=== PATIENT | male | born 1945 | race Caucasian/White ===

== ENCOUNTER 2017-11-15 13:33 | Inpatient (IN) | payer OTHER ==
[~2017-11-15] VITALS: Ht 172.7 cm; Wt 83.1 kg
[~2017-11-15 13:33] MED LIST: ADV250 IH; AEC81 PO; ALBU18HF7 IH; DIGO125T87 PO; DRON400T2 PO; FURO40TA5 PO; LOSA50TA37 PO; METO-391 PO; POTA10CA44 PO; RIVA20TA PO; TIOT18CA3 IH
[2017-11-15 13:58] LABS: BASOPHILS % (AUTO) 0.5 % (0.0-5.0); EOSINOPHILS % (AUTO) 4.8 % (0.0-8.0); HEMATOCRIT 39.7 % (42-54); LYMPHOCYTES % (AUTO) 12.1 % (21.0-51.0); MEAN CORPUSCULAR HEMOGLOBIN 32.4 pg (27.0-33.0); MEAN CORPUSCULAR HGB CONC 35.7 g/dL (32.0-36.0); MEAN CORPUSCULAR VOLUME 90.8 fL (79-99); MONOCYTES % (AUTO) 16.7 % (3.0-13.0); NEUTROPHILS % (AUTO) 65.9 % (40.0-77.0); PLATELET COUNT (AUTO) 223 K/uL (130-400); RED BLOOD CELL COUNT(AUTO) 4.37 MIL/uL (4.50-6.20); RED CELL DISTRIBUTION WIDTH 13.6 % (11.0-15.5)
[2017-11-15 14:06] LABS: CREATININE 1.3 mg/dL (0.5-1.5); POTASSIUM 4.3 mmol/L (3.5-5.1)
[2017-11-15] MEDS ORDERED: IPRATROPIUM/ALBUTEROL SULFATE 3 ML SOLUTION IH ONE ×2 (14:12→16:47)
[2017-11-15 14:13] LABS: ALBUMIN 3.6 g/dL (3.5-5.0); BILIRUBIN,TOTAL 0.6 mg/dL (0.2-1.0)
[2017-11-15 14:22] LABS: INR 1.27 (0.85-1.15); PARTIAL THROMBOPLASTIN TIME 42.1 SEC (26.3-35.5); PROTHROMBIN TIME 13.3 SEC (9.6-11.6)
[2017-11-15 14:32] LABS: B-TYPE NATRIURETIC PEPTIDE 176 pg/mL (0-100)
[2017-11-15] MEDS ORDERED: METHYLPREDNISOLONE SOD SUCC 125MG/2ML VIAL ONE (15:31)
[2017-11-15] MEDS ORDERED: LEVOFLOXACIN 750 MG/D5W 150 ML 150 ML ONE (17:22)
[2017-11-15] MEDS ORDERED: ONDANSETRON HCL 4 MG/2 ML VIAL IVP PRN (20:00)
[2017-11-15] MEDS ORDERED: ACETAMINOPHEN 325 MG TAB PO PRN (20:00)
[2017-11-16] MEDS: IPRATROPIUM/ALBUTEROL SULFATE 3 ML SOLUTION IH SCH ×6 (00:28→22:00)
[2017-11-16 05:33] LABS: BASOPHILS % (AUTO) 0.8 % (0.0-5.0); HEMATOCRIT 41.3 % (42-54); LYMPHOCYTES % (AUTO) 6.6 % (21.0-51.0); MEAN CORPUSCULAR HEMOGLOBIN 31.1 pg (27.0-33.0); MEAN CORPUSCULAR HGB CONC 34.2 g/dL (32.0-36.0); MEAN CORPUSCULAR VOLUME 90.7 fL (79-99); MONOCYTES % (AUTO) 7.8 % (3.0-13.0); NEUTROPHILS % (AUTO) 84.8 % (40.0-77.0); PLATELET COUNT (AUTO) 213 K/uL (130-400); RED BLOOD CELL COUNT(AUTO) 4.56 MIL/uL (4.50-6.20); RED CELL DISTRIBUTION WIDTH 13.8 % (11.0-15.5); WHITE BLOOD COUNT (AUTO) 4.8 K/uL (4.8-10.8)
[2017-11-16 05:40] LABS: INR 1.1 (0.85-1.15); PARTIAL THROMBOPLASTIN TIME 35.8 SEC (26.3-35.5); PROTHROMBIN TIME 11.5 SEC (9.6-11.6)
[2017-11-16 05:54] LABS: ALBUMIN 3.5 g/dL (3.5-5.0); BILIRUBIN,TOTAL 0.6 mg/dL (0.2-1.0); CREATININE 1.4 mg/dL (0.5-1.5); POTASSIUM 4.3 mmol/L (3.5-5.1); TOTAL PROTEIN, SERUM 7.1 g/dL (6.0-8.3)
[2017-11-16] MEDS ORDERED: IPRATROPIUM/ALBUTEROL SULFATE 3 ML SOLUTION IH ONE (06:35)
[2017-11-16] MEDS ORDERED: METHYLPREDNISOLONE SOD SUCC 125MG/2ML VIAL ONE (08:29)
[2017-11-16 08:57] VITALS: BP 130/92
[2017-11-16] MEDS ORDERED: METHYLPREDNISOLONE SOD SUCC 125MG/2ML VIAL IVP SCH (09:00)
[2017-11-16] MEDS: RIVAROXABAN 20 MG TABLET PO SCH (09:02)
[2017-11-16 11:33] VITALS: BP 127/83
[2017-11-16 16:11] VITALS: BP 157/98
[2017-11-16] MEDS ORDERED: METOPROLOL TARTRATE 25 MG TAB ONE (17:07)
[2017-11-16] MEDS: METOPROLOL TARTRATE 25 MG TAB PO SCH (17:08)
[2017-11-16] MEDS: DRONEDARONE HYDROCHLORIDE 400 MG TABLET PO SCH (19:14)
[2017-11-16 19:21] LABS: CREATINE KINASE MB 12.7 ng/mL (0.5-3.6); MYOGLOBIN 407 ng/mL (10-92); TROPONIN I 0.15 ng/mL (0.00-0.06)
[2017-11-16 19:23] LABS: CREATINE KINASE, TOTAL 441 U/L (21-232); DIGOXIN < 0.20 ng/mL (0.50-2.00)
[2017-11-16 20:00] VITALS: BP 145/89
[2017-11-16] MEDS ORDERED: DRONEDARONE HYDROCHLORIDE 400 MG TABLET PO SCH (21:00)
[2017-11-16 21:43] LABS: ABG BASE EXCESS 0.4 mmol/L (-2.0-3.0); ABG HCO3 26.2 mmol/L (21.0-28.0); ABG OXYGEN SATURATION 98.9 % (95.0-99.0); ABG PCO2 46 mmHg (35-48)
[2017-11-16 23:29] VITALS: BP 145/91
[2017-11-17] MEDS: LEVOFLOXACIN 750 MG/D5W 150 ML 150 ML IV SCH
[2017-11-17] MEDS ORDERED: LEVOFLOXACIN 500 MG/D5W 100 ML 200 ML ONE (00:06)
[2017-11-17] MEDS: METHYLPREDNISOLONE SOD SUCC 40MG/ML 1ML IVP SCH ×5 (01:03→23:32)
[2017-11-17] MEDS ORDERED: LORAZEPAM 2 MG/ML 1 ML VIAL ONE (02:39)
[2017-11-17] MEDS ORDERED: LORAZEPAM 2 MG/ML 1 ML VIAL IVP ONE (02:45)
[2017-11-17] MEDS: IPRATROPIUM/ALBUTEROL SULFATE 3 ML SOLUTION IH SCH ×6 (02:53→21:54)
[2017-11-17 03:59] LABS: HEMATOCRIT 44.5 % (42-54); MEAN CORPUSCULAR HEMOGLOBIN 31.7 pg (27.0-33.0); MEAN CORPUSCULAR HGB CONC 34.7 g/dL (32.0-36.0); MEAN CORPUSCULAR VOLUME 91.2 fL (79-99); PLATELET COUNT (AUTO) 237 K/uL (130-400); RED BLOOD CELL COUNT(AUTO) 4.88 MIL/uL (4.50-6.20); RED CELL DISTRIBUTION WIDTH 14.1 % (11.0-15.5); WHITE BLOOD COUNT (AUTO) 9.8 K/uL (4.8-10.8)
[2017-11-17 04:00] VITALS: BP 150/92
[2017-11-17 04:08] LABS: INR 1.04 (0.85-1.15); PARTIAL THROMBOPLASTIN TIME 33.1 SEC (26.3-35.5); PROTHROMBIN TIME 10.9 SEC (9.6-11.6)
[2017-11-17 04:21] LABS: ALBUMIN 3.8 g/dL (3.5-5.0); BILIRUBIN,TOTAL 0.6 mg/dL (0.2-1.0); CREATININE 1.2 mg/dL (0.5-1.5); MAGNESIUM 2.2 mg/dL (1.80-2.40); POTASSIUM 4.2 mmol/L (3.5-5.1); TOTAL PROTEIN, SERUM 7.7 g/dL (6.0-8.3); TROPONIN I 0.22 ng/mL (0.00-0.06)
[2017-11-17 07:40] VITALS: BP 112/59
[2017-11-17] MEDS: LOSARTAN 50 MG TABLET PO SCH (08:00)
[2017-11-17] MEDS: ASPIRIN 81 MG EC TAB PO SCH (08:00)
[2017-11-17] MEDS: DRONEDARONE HYDROCHLORIDE 400 MG TABLET PO SCH ×2 (08:00→16:54)
[2017-11-17] MEDS: RIVAROXABAN 20 MG TABLET PO SCH (08:01)
[2017-11-17] MEDS: METOPROLOL TARTRATE 25 MG TAB PO SCH ×2 (08:01→20:04)
[2017-11-17] MEDS: FUROSEMIDE 40 MG TABLET PO SCH (08:01)
[2017-11-17 11:02] LABS: CREATINE KINASE MB 11.7 ng/mL (0.5-3.6); TROPONIN I 0.14 ng/mL (0.00-0.06)
[2017-11-17 11:28] VITALS: BP 116/74
[2017-11-17 16:26] VITALS: BP 122/69
[2017-11-17 20:00] VITALS: BP 125/69
[2017-11-18] VITALS: BP 127/73
[2017-11-18] MEDS: IPRATROPIUM/ALBUTEROL SULFATE 3 ML SOLUTION IH SCH ×6 (02:08→21:58)
[2017-11-18 04:00] VITALS: BP 129/75
[2017-11-18] MEDS: METHYLPREDNISOLONE SOD SUCC 40MG/ML 1ML IVP SCH ×2 (05:55→11:49)
[2017-11-18 07:30] VITALS: BP 123/72
[2017-11-18] MEDS: ASPIRIN 81 MG EC TAB PO SCH (08:39)
[2017-11-18] MEDS: FUROSEMIDE 40 MG TABLET PO SCH (08:39)
[2017-11-18] MEDS: DRONEDARONE HYDROCHLORIDE 400 MG TABLET PO SCH ×2 (08:40→16:53)
[2017-11-18] MEDS: METOPROLOL TARTRATE 25 MG TAB PO SCH ×2 (08:40→20:17)
[2017-11-18] MEDS: LOSARTAN 50 MG TABLET PO SCH (08:40)
[2017-11-18] MEDS: RIVAROXABAN 20 MG TABLET PO SCH (08:40)
[2017-11-18 11:00] VITALS: BP 129/70
[2017-11-18 16:00] VITALS: BP 126/71
[2017-11-18] MEDS: PREDNISONE 20 MG TABLET PO SCH (20:17)
[2017-11-18 20:24] VITALS: BP 131/71
[2017-11-18] MEDS: LEVOFLOXACIN 750 MG/D5W 150 ML 150 ML IV SCH (22:22)
[2017-11-19 00:06] VITALS: BP 107/54
[2017-11-19] MEDS: IPRATROPIUM/ALBUTEROL SULFATE 3 ML SOLUTION IH SCH ×2 (01:20→06:00)
[2017-11-19 04:39] VITALS: BP 116/69
[2017-11-19] MEDS: PREDNISONE 20 MG TABLET PO SCH (06:55)
[2017-11-19] MEDS: METOPROLOL TARTRATE 25 MG TAB PO SCH (07:53)
[2017-11-19] MEDS: DRONEDARONE HYDROCHLORIDE 400 MG TABLET PO SCH (07:53)
[2017-11-19] MEDS: ASPIRIN 81 MG EC TAB PO SCH (07:53)
[2017-11-19] MEDS: RIVAROXABAN 20 MG TABLET PO SCH (07:53)
[2017-11-19] MEDS: FUROSEMIDE 40 MG TABLET PO SCH (07:54)
[2017-11-19] MEDS: LOSARTAN 50 MG TABLET PO SCH (07:54)
== END 2017-11-19 08:30 | disposition home or self-care (01) | DRG 189 ==
LOC: EDH 13:33 → OBSVTOIN 18:28 → EDHIP 18:28 → 4BH 11-16 08:31
PROVIDERS: ADMIT Internal Medicine; ATTEND Internal Medicine
PROC: 5A09357 Assistance with Respiratory Ventilation, Less than 24 Consecutive Hours, Continuous Positive Airway Pressure (ICD-10-PCS; 2017-11-16)
PROC: 5A09357 Assistance with Respiratory Ventilation, Less than 24 Consecutive Hours, Continuous Positive Airway Pressure (ICD-10-PCS; principal; 2017-11-18)
DX: J96.91 Respiratory failure, unspecified with hypoxia (principal); I48.0 Paroxysmal atrial fibrillation; J44.1 Chronic obstructive pulmonary disease with (acute) exacerbation; I25.5 Ischemic cardiomyopathy; I25.10 Atherosclerotic heart disease of native coronary artery without angina pectoris; F17.210 Nicotine dependence, cigarettes, uncomplicated; I12.9 Hypertensive chronic kidney disease with stage 1 through stage 4 chronic kidney disease, or unspecified chronic kidney disease; I48.2 Chronic atrial fibrillation; N18.2 Chronic kidney disease, stage 2 (mild); Z82.49 Family history of ischemic heart disease and other diseases of the circulatory system; Z87.442 Personal history of urinary calculi; Z88.0 Allergy status to penicillin; Z88.1 Allergy status to other antibiotic agents; Z91.040 Latex allergy status; Z91.048 Other nonmedicinal substance allergy status; Z28.21 Immunization not carried out because of patient refusal
CPT/HCPCS: 36415; 36600; 71045; 80053; 80162; 82550; 82553; 82803; 83735; 83874; 83880; 84484; 85025; 85027; 85610; 85730; 87804; 93005; 94640; 94660; 94664; 94760; 99291; J1956; J2060; J2920; J2930

== ENCOUNTER → 2018-08-01 | Outpatient (CLI) | payer OTHER ==
[~2018-08-01] MED LIST changes: -DIGO125T87 PO; +LOSA50TA25 PO; -LOSA50TA37 PO
== END | disposition home or self-care (01) ==
LOC: SHCH 09:32
PROVIDERS: ATTEND Internal Medicine Cardiovascular Disease
DX: I11.9 Hypertensive heart disease without heart failure (principal); I34.0 Nonrheumatic mitral (valve) insufficiency; I48.0 Paroxysmal atrial fibrillation; Z72.89 Other problems related to lifestyle
CPT/HCPCS: 93306

== ENCOUNTER → 2018-11-17 | Outpatient (CLI) | payer OTHER ==
[~2018-11-17] MED LIST changes: -LOSA50TA25 PO; +LOSA50TA64 PO
== END | disposition home or self-care (01) ==
LOC: SHCH 07:47
PROVIDERS: ATTEND Internal Medicine Cardiovascular Disease
DX: I51.7 Cardiomegaly (principal); I48.91 Unspecified atrial fibrillation; J44.9 Chronic obstructive pulmonary disease, unspecified
CPT/HCPCS: 93306

== ENCOUNTER 2019-05-01 09:43 | Observation (INO) | payer OTHER ==
[~2019-05-01] VITALS: Ht 165.1 cm; Wt 74.8 kg
[2019-05-01] MEDS ORDERED: ONDANSETRON HCL 4 MG/2 ML VIAL ONE (10:01)
[2019-05-01] MEDS ORDERED: CEFTRIAXONE SODIUM 1 GM ONE (10:02)
[2019-05-01] MEDS ORDERED: MORPHINE SULFATE 2 MG/ML 1ML SYG ONE (10:02)
[2019-05-01] MEDS ORDERED: SODIUM CHLORIDE 0.9% 1000ML 1,000 ML IV ONE (10:03)
[2019-05-01 10:19] LABS: CREATININE 1.3 mg/dL (0.5-1.5); POTASSIUM 3.4 mmol/L (3.5-5.1)
[2019-05-01 10:24] LABS: ALBUMIN 3.7 g/dL (3.5-5.0); BILIRUBIN,TOTAL 1.1 mg/dL (0.2-1.0); TOTAL PROTEIN, SERUM 7.7 g/dL (6.0-8.3)
[2019-05-01] MEDS ORDERED: ONDANSETRON HCL 4 MG/2 ML VIAL IVP PRN (11:15)
[2019-05-01 14:30] VITALS: BP 95/59
--- NOTE | 2019-05-01 14:30 | NUR ---
ER ADMIT TO ROOM 3066, DATABASE COLLECTED. IVF STARTED.
--- NOTE | 2019-05-01 19:54 | NUR ---
MD Dr MARCIAL CALLED AND CLARIFIED ORDER FOR TAYLOR,HE ALSO SAID HE WILL UPDATE PT.S HOME MEDS IN AM.
[2019-05-01 20:00] VITALS: BP 130/74
[2019-05-01] MEDS ORDERED: PHARMACY COMMUNICATION MISC SCH (20:00)
--- NOTE | 2019-05-01 21:06 | NUR ---
HOME MEDS Pt talking to his on the phone,about his home meds. will not be able to bring home meds.Advised him Dr Sotelo is aware and will reconcile his meds in am. Addendum: 05/02/19 at 0052 by HARMAN LUNDY RN RN FALL RISK Fall risk precautions initiated,pt refused bed alarm,states,'That would not be necessary".Instructed to call for assistance,verbalized understanding.
[2019-05-01] MEDS: MORPHINE SULFATE 2 MG/ML 1ML SYG IVP PRN (21:13)
--- NOTE | 2019-05-01 21:13 | NUR ---
MORPHINE Pt medicated with Morphine iv for pain.
--- NOTE | 2019-05-01 22:13 | NUR ---
MED EFFECT Pt verbalized relief of pain.
--- NOTE | 2019-05-01 22:42 | NUR ---
MD Dr MARCIAL here,pt was asleep.He said he will fax pt.s home meds from his office in am.He also gave order to consult Dr Law in am.
[2019-05-01] MEDS: SODIUM CHLORIDE 0.9% 1000ML 1,000 ML IV SCH (22:43)
[2019-05-02] VITALS (7 sets, daily range): BP systolic 106–129; BP diastolic 57–70
--- NOTE | 2019-05-02 01:33 | NUR ---
AWAKE Pt awake this time,denies pain or sob.Updated on Md plan of care for am.He got upset that dr Sotelo did not wake him up.He said,"Everybody else does".
[2019-05-02] MEDS: SODIUM CHLORIDE 0.9% 1000ML 1,000 ML IV SCH (06:39)
[2019-05-02] MEDS: FAMOTIDINE 20MG TAB 20 MG TAB PO SCH (09:22)
--- NOTE | 2019-05-02 09:26 | NUR ---
Notified of consult. Stated he will look at imaging.
[2019-05-02] MEDS: MORPHINE SULFATE 2 MG/ML 1ML SYG IVP PRN ×2 (11:09→19:37)
[2019-05-02] MEDS ORDERED: SPIR25TA6 PO (14:01)
[2019-05-02] MEDS ORDERED: METO-391 PO (14:01)
[2019-05-02] MEDS ORDERED: LOSA25TA41 PO (14:01)
[2019-05-02] MEDS ORDERED: FURO20TA4 PO (14:01)
[2019-05-02] MEDS ORDERED: ALBU8.5H8 IH (14:06)
[2019-05-02] MEDS ORDERED: POTASSIUM CHLORIDE 10% ELIXIR 20 MEQ/15 ML UDCUP PO PRN (16:15)
[2019-05-02] MEDS ORDERED: POTASSIUM CHLORIDE 20MEQ/100ML 100 ML IV PRN (16:15)
[2019-05-02] MEDS ORDERED: LIDOCAINE HCL-MPF 1% 2ML VIAL IVP PRN (16:15)
--- NOTE | 2019-05-02 17:00 | NUR ---
DCP CM met with pt and spouse discussed dc plans. Pt is independent prior to admission, lives at home with spouse. Pt has a cane and oxygen equipments portable and stationary. Denies any other equipments/services. Pt feels safe to go back home, spouse able to assist with transportation and needs as necessary. DC plan to home once stable. CM to cont to follow up. Addendum: 05/02/19 at 2011 by SHAUNNA NAQVI LVN CM Amended: Links added.
[2019-05-02] MEDS: POTASSIUM CHLORIDE 20 MEQ ERTAB PO PRN ×2 (17:46→22:03)
[2019-05-02] MEDS: IPRATROPIUM/ALBUTEROL SULFATE 3 ML SOLUTION IH SCH ×2 (18:25→23:15)
--- NOTE | 2019-05-02 18:31 | NUR ---
CONSENT Obtained consent for needle biopsy of pancreatic mass and in chart.
[2019-05-03] VITALS (14 sets, daily range): BP systolic 93–128; BP diastolic 57–77
[2019-05-03] MEDS: MORPHINE SULFATE 2 MG/ML 1ML SYG IVP PRN ×3 (04:17→16:16)
[2019-05-03] MEDS: SODIUM CHLORIDE 0.9% 1000ML 1,000 ML IV SCH (06:33)
[2019-05-03 06:47] LABS: INR 1.03 (0.85-1.15); PROTHROMBIN TIME 10.8 SEC (9.6-11.6)
[2019-05-03] MEDS: IPRATROPIUM/ALBUTEROL SULFATE 3 ML SOLUTION IH SCH ×2 (06:57→12:00)
--- NOTE | 2019-05-03 08:36 | NUR ---
PATIENT UPDATE SLEPT WELL OVERNIGHT, MEDICATED ONCE FOR PAIN AND NAUSEA EARLY AM WITH MORPHINE 2 MG AND ZOFRAN 4 MG IV PUSH. KEEPING NPO POST MN FOR LIVER BIOPSY THIS AM BY INTERVENTIONAL RADIOLOGY. CONTINUES WITH THE NS AT 40 CC/HR.
[2019-05-03] MEDS ORDERED: VENTOLIN HFA IH PRN (09:00)
[2019-05-03] MEDS ORDERED: SPIRIVA IH SCH (09:00)
[2019-05-03] MEDS: FAMOTIDINE 20MG TAB 20 MG TAB PO SCH (09:28)
--- NOTE | 2019-05-03 10:45 | NUR ---
TO PROCEDURE Patient taken to IR for liven biopsy.
--- NOTE | 2019-05-03 10:57 | NUR ---
PROCEDURE PATIENT TRANSFERRED VIA BED TO RADIOLOGY FOR LIVER BIOPSY BY [facility].
[2019-05-03] MEDS ORDERED: FENTANYL CITRATE PF 50 MCG/1 ML 2ML VIAL ONE (11:30)
[2019-05-03] MEDS ORDERED: MIDAZOLAM HCL 1 MG/ML 2ML VIAL ONE (11:30)
--- NOTE | 2019-05-03 11:40 | NUR ---
U/S GD LIVER BX PROCEDURE PERFORMED BY DR HUGHES. PUNCTURE SITE RIGHT UPPER QUADRANT/RIGHT RIB CAGE AREA AND PATIENT TOLERATED PROCEDURE WELL. SPECIMEN X 4 COLLECTED AND SENT TO LAB. END OF PROCEDURE AT 1155. FLOSEAL APPLIED TO TRACK SITE, BIOPSY NEEDLE REMOVED AND DRESSING APPLIED. NO BLEEDING NOTED. REPORT GIVEN TO MEKA GAMINO AND PATIENT TRANSPORTED TO 3RD FLOOR RM 306 VIA BED. STABLE, AAO X3 WITH NO C/O PAIN.
[2019-05-03] MEDS ORDERED: FENTANYL 25 MCG/HR PATCH TD SCH (14:45)
== END 2019-05-03 17:25 | disposition home or self-care (01) ==
LOC: EDH 09:43 → EDHIP 10:38 → 3BH 14:29
PROVIDERS: ADMIT Internal Medicine; ATTEND Internal Medicine
DX: K86.2 Cyst of pancreas (principal); C25.9 Malignant neoplasm of pancreas, unspecified; C78.7 Secondary malignant neoplasm of liver and intrahepatic bile duct; C79.51 Secondary malignant neoplasm of bone; I10 Essential (primary) hypertension; I48.0 Paroxysmal atrial fibrillation; J44.9 Chronic obstructive pulmonary disease, unspecified; N20.0 Calculus of kidney; F17.200 Nicotine dependence, unspecified, uncomplicated; Z87.442 Personal history of urinary calculi; Z79.01 Long term (current) use of anticoagulants; Z82.3 Family history of stroke; Z82.49 Family history of ischemic heart disease and other diseases of the circulatory system; Z83.3 Family history of diabetes mellitus; Z79.899 Other long term (current) drug therapy
CPT/HCPCS: 36415 ×2; 47000; 71045; 74176; 76942; 80053; 83690; 85610; 88307; 94640 ×3; 94664; 96374; 96375; 96376 ×2; 99284; A4510; C2615; G0378 ×54; J0696; J2250; J2405 ×2; J3010; J7030 ×2; 99152

== ENCOUNTER 2019-05-23 09:48 | Day surgery (SDC) | payer OTHER ==
[2019-05-21 08:25] LABS: BASOPHILS % (AUTO) 0.7 % (0.0-5.0); EOSINOPHILS % (AUTO) 1.7 % (0.0-8.0); MEAN CORPUSCULAR HEMOGLOBIN 32.2 pg (27.0-33.0); MEAN CORPUSCULAR HGB CONC 33.6 g/dL (32.0-36.0); MONOCYTES % (AUTO) 10.1 % (3.0-13.0); NEUTROPHILS % (AUTO) 74.5 % (40.0-77.0); PLATELET COUNT (AUTO) 348 K/uL (130-400); RED BLOOD CELL COUNT(AUTO) 4.79 MIL/uL (4.50-6.20); RED CELL DISTRIBUTION WIDTH 13.8 % (11.0-15.5)
[2019-05-21 08:38] LABS: INR 1.52 (0.85-1.15); PARTIAL THROMBOPLASTIN TIME 43.4 SEC (26.3-35.5); PROTHROMBIN TIME 15.8 SEC (9.6-11.6)
[2019-05-21 08:41] LABS: ALBUMIN 3.6 g/dL (3.5-5.0); BILIRUBIN,TOTAL 0.9 mg/dL (0.2-1.0); CREATININE 1.3 mg/dL (0.5-1.5); POTASSIUM 4.7 mmol/L (3.5-5.1); TOTAL PROTEIN, SERUM 7.8 g/dL (6.0-8.3)
[2019-05-21 08:42] VITALS: BP 114/70
[~2019-05-23] VITALS: Ht 162.6 cm; Wt 77.0 kg
[~2019-05-23 09:48] MED LIST changes: +ALBU8.5H8 IH; +FURO20TA4 PO; -FURO40TA5 PO; +LOSA25TA41 PO; -LOSA50TA64 PO; +PHARMACY COMMUNICATION MISC SCH; -RIVA20TA PO; +SPIR25TA6 PO
[2019-05-23 09:55] VITALS: BP 121/69
[2019-05-23] MEDS ORDERED: SODIUM CHLORIDE 0.9% 1000ML 1,000 ML IV ONE (11:48)
[2019-05-23 13:43] VITALS: BP 118/45
[2019-05-23] MEDS ORDERED: LIDOCAINE HCL 1% MDV 50ML VIAL ONE (13:50)
[2019-05-23] MEDS ORDERED: LIDOCAINE 1%-EPI 1:100,000 20 ML VIAL IJ ONE (13:50)
[2019-05-23] MEDS ORDERED: MIDAZOLAM HCL 1 MG/ML 2ML VIAL ONE (13:56)
[2019-05-23] MEDS ORDERED: FENTANYL CITRATE PF 50 MCG/1 ML 2ML VIAL ONE (13:56)
[2019-05-23] MEDS ORDERED: OCTYL 2-CYANOACRYLATE 1 EACH TP ONE (14:24)
[2019-05-23 14:48] VITALS: BP 127/71
--- NOTE | 2019-05-23 14:48 | NUR ---
PT ARRIVED DRESSING DRY AND INTACT, NO HEMATOMA NOTED
[2019-05-23 15:03] VITALS: BP 124/73
[2019-05-23 15:18] VITALS: BP 112/41
--- NOTE | 2019-05-23 15:51 | NUR ---
PT DISCHARGED NO CONCERNS VOICED, DRESSING DRY AND INTACT.
== END 2019-05-23 15:51 | disposition home or self-care (01) ==
LOC: DAH 09:48
PROVIDERS: ATTEND Internal Medicine Hematology & Oncology
DX: C25.9 Malignant neoplasm of pancreas, unspecified (principal); J44.9 Chronic obstructive pulmonary disease, unspecified; I48.91 Unspecified atrial fibrillation; F17.210 Nicotine dependence, cigarettes, uncomplicated; Z72.89 Other problems related to lifestyle; Z87.442 Personal history of urinary calculi; Z88.8 Allergy status to other drugs, medicaments and biological substances; Z88.0 Allergy status to penicillin; Z88.1 Allergy status to other antibiotic agents; Z91.048 Other nonmedicinal substance allergy status; Z91.040 Latex allergy status; Z79.82 Long term (current) use of aspirin; Z98.890 Other specified postprocedural states; Z79.899 Other long term (current) drug therapy; Z82.3 Family history of stroke; Z83.3 Family history of diabetes mellitus; Z82.49 Family history of ischemic heart disease and other diseases of the circulatory system
CPT/HCPCS: 36415; 36561; 77001; 80053; 85025; 85610; 85730; A4215; A4216; A4221; A4222; A4223 ×3; A4606; C1788; C1894; J1644 ×2; J2250; J3010; J3490; J7030; 99156; 99157